=== PATIENT | female | born 1975 | race American Indian/Alaskan Native ===

== ENCOUNTER 2016-03-27 16:27 | Outpatient (CLI) | payer MEDICARE ==
--- NOTE | 2016-03-27 17:58 | Cat Scan Report ---
FINAL REPORT EXAM: CT SINUSES WO CON HISTORY: HYPER NASAL TURBINATES TECHNIQUE: Standard unenhanced CT paranasal sinuses at 1.25 mm increments with coronal and sagittal reconstruction PRIORS: None. FINDINGS: There is deformity of the nasal bones bilaterally suggesting prior fractures. No overlying soft tissue swelling is seen in this region to suggest an acute process. There are prominent nasolacrimal ducts bilaterally which also are partially opacified and contain mucosal thickening. There is mucosal thickening posteriorly in the left maxillary sinus. The frontal, ethmoid, right maxillary, and sphenoid sinuses are clear with no evidence for air-fluid levels or mucosal thickening. Nasal septum is midline. The orbits are intact. The orbital globes are normal. The visualized mastoid air cells are also clear. No overlying soft tissue abnormality is seen. IMPRESSION: 1. Deformity of the nasal bones suggesting prior remote fracture. 2. Mild mucosal thickening in the left maxillary sinus and in the prominent nasolacrimal ducts bilaterally
--- NOTE | 2016-03-27 18:02 | Cat Scan Report ---
FINAL REPORT EXAM: CT FACIAL BONES WO CON HISTORY: HYPER NASAL TURBINATES TECHNIQUE: Standard unenhanced CT facial bones at 2.5 mm increments with coronal and sagittal reconstruction PRIORS: None. FINDINGS: There is fragmentation of the nasal bones bilaterally suggesting prior fracture. No soft tissue swelling over the area is seen to suggest acute process. There is mucosal thickening in the left maxillary sinus posteriorly. The frontal, ethmoid, right maxillary, and sphenoid sinuses are clear with no evidence for air-fluid levels or mucosal thickening. Nasal septum is midline. Prominent nasal acral ducts are present bilaterally containing mucosal thickening and opacification. The orbits are intact. The orbital globes are normal. The visualized mastoid air cells are also clear. No overlying soft tissue abnormality is seen. Incidental plate and screw device is present in the mandible anteriorly. IMPRESSION: Deformity and fragmentation of the nasal bones bilaterally suggesting prior fracture. Mucosal thickening in the left maxillary sinus suggesting mild chronic sinusitis.
== END 2016-03-27 16:28 | disposition home or self-care (01) ==
LOC: CT 16:27
PROVIDERS: ATTEND Otolaryngology
DX: J34.3 Hypertrophy of nasal turbinates (principal)
CPT/HCPCS: 70486

== ENCOUNTER 2019-12-14 16:21 | Emergency (ER) | payer MEDICARE ==
[2019-12-14 17:08] LABS: Basophils % (Auto) 0.5 % (0.0-1.8); Eosinophils % (Auto) 0.3 % (0.0-4.3); Hematocrit 35.2 % (30.3-42.9); Hemoglobin 12.1 gm/dl (10.1-14.3); Lymphocytes # (Auto) 1.4 K/mm3 (1.2-5.4); Lymphocytes % (Auto) 18.1 % (13.4-35.0); Mean Corpuscular HGB Conc 34 % (30-34); Mean Corpuscular Volume 94 fl (79-97); Monocytes # (Auto) 0.4 K/mm3 (0.0-0.8); Monocytes % (Auto) 4.7 % (0.0-7.3); Platelet Count 278 K/mm3 (140-440); Red Blood Count 3.73 M/mm3 (3.65-5.03); Red Cell Distribution Width 14.5 % (13.2-15.2)
[2019-12-14 17:22] LABS: Alanine Aminotransferase 7 units/L (7-56); Albumin 4.1 g/dL (3.9-5); Blood Urea Nitrogen 6 mg/dL (7-17); Calcium 8.8 mg/dL (8.4-10.2); Hemolysis Index 1
[2019-12-14 17:24] LABS: BUN/Creatinine Ratio 9
[2019-12-14 17:32] LABS: Bacteria,Urine 1+ /HPF (Negative); Bilirubin,Urine NEG (Negative); Blood,Urine NEG (Negative); Color,Urine Yellow (Yellow); Mucus,Urine 3+ /HPF; Urobilinogen,Urine < 2.0 mg/dL (<2.0)
[2019-12-14] MEDS ORDERED: SODIUM CHLORIDE 0.9% 500 ML 500 ML IV ONE (20:19)
[2019-12-14] MEDS ORDERED: MORPHINE 4 MG/1 ML INJ IV ONE (20:20)
[2019-12-14] MEDS ORDERED: ONDANSETRON 4 MG/2 ML INJ IV ONE (20:20)
--- NOTE | 2019-12-14 20:23 | Emergency Department Report ---
HPI - General Chief Complaint: Abdominal Pain Time Seen by Provider: 12/14/19 20:03 - HPI HPI: This is a 44-year-old -[place] female presents to the emergency department with a complaint of nausea, vomiting and pelvic pain that has been going on over the past 2 weeks, but is also a chronic issue. Patient has a history of ovarian cysts. She says that she was seen at [facility] about 1 month ago and had an evaluation at that time and it showed that the cyst were "growing." She has a partial hysterectomy secondary to previous uterine cancer and this was done by Dr. Hemal Hernandez. Patient has an appointment in 5 days with [facility] regarding her ovarian cyst and pelvic pain issues. She also has a past medical history of diabetes, GERD, kidney stones, hypothyroidism and bipolar disorder. The patient says that she has been unable to take her home meds secondary to the nausea and vomiting. I looked this patient up on the [facility] prescription monitoring system and she has filled multiple scheduled prescription medications including 80 Percocet 2 days ago. This was written by her PCP, Dr. Vaughn Evans. ED Past Medical Hx - Past Medical History Hx Congestive Heart Failure: No Hx Diabetes: Yes Hx GERD: Yes Hx Renal Disease: Yes (KIDNEY STONES) Hx Kidney Stones: Yes Hx Psychiatric Treatment: Yes (IP, OP and PHP/[place]) Hx Asthma: Yes Hx COPD: No Additional medical history: hyperthyroidism/ OVARIAN CYST - Surgical History Hx Appendectomy: Yes (2012) Additional Surgical History: hysterectomy, Removal of kidney stone - Social History Smoking Status: Light Tobacco Smoker Substance Use Type: None - Medications Home Medications: Home Medications Medication Instructions Recorded Confirmed Last Taken Type Gabapentin 300 mg PO TID 03/31/14 11/04/15 Unknown History Metformin HCl [metFORMIN ER] 500 mg PO QDAY 03/31/14 11/04/15 Unknown History Doxepin [SINEquan] 100 mg PO QHS #30 capsule 04/02/14 11/04/15 Unknown Rx ALPRAZolam [Xanax TAB] 2 mg PO TID PRN 11/04/15 11/04/15 Unknown History Esomeprazole Magnesium [NexIUM] 20 mg PO QDAY 11/04/15 11/04/15 Unknown History Ibuprofen [Motrin 800 MG tab] 800 mg PO Q8HR PRN #30 tablet 11/04/15 Unknown Rx Levocetirizine Dihydrochloride 5 mg PO DAILY 11/04/15 11/04/15 Unknown History [Xyzal] Ondansetron [Zofran ODT TAB] 4 mg PO Q8HR PRN #20 tab.rapdis 11/04/15 Unknown Rx Oxycodone HCl/Acetaminophen 1 each PO TID PRN #15 tablet 11/04/15 Unknown Rx [Percocet 10/325 mg] Propranolol HCl 20 mg PO DAILY 11/04/15 11/04/15 Unknown History QUEtiapine [SEROquel] 300 mg PO QHS 11/04/15 11/04/15 Unknown History Albuterol Sulfate [Proair 90 mcg IH Q4HR PRN #2 aer.pow.ba 12/27/15 Unknown Rx Respiclick] Dicyclomine [Bentyl] 10 mg PO QID PRN #20 capsule 12/27/15 Unknown Rx Ondansetron [Zofran Odt] 4 mg PO QID PRN #20 tab.rapdis 12/27/15 Unknown Rx oxyCODONE [Roxicodone] 5 mg PO Q6HR PRN #15 tablet 12/27/15 Unknown Rx Benzonatate [Tessalon Perles] 100 mg PO Q8HR PRN #30 capsule 02/06/16 Unknown Rx Prednisone [predniSONE 10 mg 10 mg PO .TAPER #1 tab.ds.pk 02/06/16 Unknown Rx (6-Day Pack, 21 Tabs)] Ondansetron [Zofran Odt] 4 mg PO Q8HR PRN #20 tab.rapdis 12/14/19 Unknown Rx ED Review of Systems ROS: Stated complaint: NAUSEA AND ABD PAIN Other details as noted in HPI Comment: All other systems reviewed and negative Constitutional: denies: chills, fever Eyes: denies: eye pain, vision change ENT: denies: ear pain, throat pain Respiratory: denies: cough, shortness of breath Cardiovascular: denies: chest pain, palpitations Gastrointestinal: abdominal pain, nausea, vomiting Genitourinary: other (pelvic pain). denies: dysuria Musculoskeletal: denies: back pain, arthralgia Skin: denies: rash, lesions Neurological: denies: headache, weakness Physical Exam - Physical Exam Vital Signs: Vital Signs 12/14/19 16:40 Temperature 98.3 F Pulse Rate 92 H Respiratory 18 Rate Blood Pressure 138/76 O2 Sat by Pulse 98 Oximetry Physical Exam: GENERAL: The patient is well-developed well-nourished. HENT: Normocephalic. Atraumatic. Patient has moist mucous membranes. EYES: Extraocular motions are intact. NECK: Supple. Trachea is midline. CHEST/LUNGS: Clear to auscultation. There is no respiratory distress noted. HEART/CARDIOVASCULAR: Regular. There is no tachycardia. There is no murmur. ABDOMEN: Abdomen is soft. Unable to reproduce lower abdominal or pelvic discomfort to palpation. No guarding. Patient has normal bowel sounds. NEURO: The patient is awake, alert, and oriented. The patient is cooperative. The patient has no focal neurologic deficits. Normal speech. MUSCULOSKELETAL: There is no tenderness or deformity. There is no limitation range of motion. ED Course Vital Signs 12/14/19 16:40 Temperature 98.3 F Pulse Rate 92 H Respiratory 18 Rate Blood Pressure 138/76 O2 Sat by Pulse 98 Oximetry - Reevaluation(s) Reevaluation #1: 12/15/19 00:45 Lab Results 12/14/19 12/14/19 12/14/19 Range/Units 16:45 16:45 17:15 WBC 7.8 (4.5-11.0) K/mm3 RBC 3.73 (3.65-5.03) M/mm3 Hgb 12.1 (10.1-14.3) gm/dl Hct 35.2 (30.3-42.9) % MCV 94 (79-97) fl MCH 33 H (28-32) pg MCHC 34 (30-34) % RDW 14.5 (13.2-15.2) % Plt Count 278 (140-440) K/mm3 Lymph % (Auto) 18.1 (13.4-35.0) % Frio % (Auto) 4.7 (0.0-7.3) % Eos % (Auto) 0.3 (0.0-4.3) % Baso % (Auto) 0.5 (0.0-1.8) % Lymph # (Auto) 1.4 (1.2-5.4) K/mm3 Frio # (Auto) 0.4 (0.0-0.8) K/mm3 Eos # (Auto) 0.0 (0.0-0.4) K/mm3 Baso # (Auto) 0.0 (0.0-0.1) K/mm3 Seg Neutrophils % 76.4 H (40.0-70.0) % Seg Neutrophils # 6.0 (1.8-7.7) K/mm3 Sodium 137 (137-145) mmol/L Potassium 3.8 (3.6-5.0) mmol/L Chloride 100.2 (98-107) mmol/L Carbon Dioxide 24 (22-30) mmol/L Anion Gap 17 mmol/L BUN 6 L (7-17) mg/dL Creatinine 0.7 (0.6-1.2) mg/dL Estimated GFR > 60 ml/min BUN/Creatinine Ratio 9 % Glucose 123 H (65-100) mg/dL Calcium 8.8 (8.4-10.2) mg/dL Total Bilirubin 0.20 (0.1-1.2) mg/dL AST 12 (5-40) units/L ALT 7 (7-56) units/L Alkaline Phosphatase 85 (35-129) units/L Total Protein 7.6 (6.3-8.2) g/dL Albumin 4.1 (3.9-5) g/dL Albumin/Globulin Ratio 1.2 % Urine Color Yellow (Yellow) Urine Turbidity Clear (Clear) Urine pH 7.0 (5.0-7.0) Ur Specific [place] 1.030 (1.003-1.030) Urine Protein 30 mg/dl (Negative) mg/dL Urine Glucose (UA) Neg (Negative) mg/dL Urine Ketones Neg (Negative) mg/dL Urine Blood Neg (Negative) Urine Nitrite Neg (Negative) Urine Bilirubin Neg (Negative) Urine Urobilinogen < 2.0 (<2.0) mg/dL Ur Leukocyte Esterase Neg (Negative) Urine WBC (Auto) 1.0 (0.0-6.0) /HPF Urine RBC (Auto) 3.0 (0.0-6.0) /HPF U Epithel Cells (Auto) 6.0 (0-13.0) /HPF Urine Bacteria (Auto) 1+ (Negative) /HPF Urine Mucus 3+ /HPF Vital Signs 12/14/19 12/14/19 16:40 23:47 Temperature 98.3 F 98.1 F Pulse Rate 92 H 94 H Respiratory 18 16 Rate Blood Pressure 138/76 Blood Pressure 132/87 [Right] O2 Sat by Pulse 98 99 Oximetry ED Medical Decision Making - Lab Data Result diagrams: 12/14/19 16:45 12/14/19 16:45 - Radiology Data Radiology results: report reviewed, image reviewed interpreted by me: Abdominal x-ray shows nonspecific nonobstructive bowel gas Pelvic pain, Hx of Ovarian cyst TECHNICAL DATA: Ultrasound, pelvic (nonobstetric), real-time with image documentation; transabdominal and transvaginal imaging with Doppler was performed. FINDINGS: The uterus has been removed. The right and left ovaries are of symmetric size and echogenicity. There is a 1.96 cm complex cyst. Doppler imaging demonstrates normal vascular flow to both ovaries. There is no significant quantity of free fluid dependently within the pelvis. IMPRESSION: Left ovarian complex cyst. Recommend clinical correlation - Medical Decision Making This patient presents to the emergency department with complaint of some lower abdominal and pelvic pain that the patient says is related to a growing ovarian cyst. On examination I am unable to reproduce her discomfort to palpation, but there is no guarding. The abdomen is soft, nondistended and nontoxic in appearance. Abdominal x-ray shows nonspecific nonobstructive bowel gas. Pelvic ultrasound shows a 2 cm left ovarian cyst that may be complex. No significant pelvic fluid. Patient's labs have been mostly unremarkable including CBC, metabolic panel and urinalysis. There is no leukocytosis. There are no electrolyte abnormalities. The patient does not have a urinary tract infection and there are no signs of dehydration. The patient was given IV fluid resuscitation, IV analgesia and IV antiemetics. She has good outpatient follow-up with primary care, [facility], and [facility]. Her vital signs have been reassuring throughout her ED course including being afebrile. The patient has recently filled a moderate to large amount of Percocet and therefore should have appropriate pain management at home. I have given her a prescription for Zofran ODT. The patient has been in the emergency department for close to 7 hours in total without any further vomiting and she has been able to pass an oral challenge. She has been instructed to return to the emergency department with any worsening of her symptoms or with any acute distress. Critical Care Time: No Critical care attestation.: If time is entered above; I have spent that time in minutes in the direct care of this critically ill patient, excluding procedure time. ED Disposition Clinical Impression: Nausea, Pelvic pain Ovarian cyst Qualifiers: Laterality: left Qualified Code(s): N83.202 - Unspecified ovarian cyst, left side Disposition: - TO HOME OR SELFCARE Is pt being admited?: No Condition: Stable Instructions: Ovarian Cyst (ED), Acute Nausea and Vomiting (ED), Abdominal Pain (ED) Additional Instructions: Please follow-up with your primary care physician and [facility] in the next few day s. Take your medications as prescribed. Increase your oral rehydration. Return to the emergency department with any worsening of your symptoms, new or concerning symptoms not addressed during this current emergency department visit, or with any acute distress. Prescriptions: Ondansetron [Zofran Odt] 4 mg PO Q8HR PRN #20 tab.rapdis PRN Reason: Nausea Referrals: PRIMARY CAREMD [Primary Care Provider] - 3-5 Days TERRI RUANO MD [Staff Physician] - 3-5 Days [facility] [Provider Group] - 3-5 Days Time of Disposition: 22:58
[2019-12-14] MEDS ORDERED: HYDROmorphone 1 MG/1 ML INJ IV ONE (20:54)
--- NOTE | 2019-12-14 21:15 | XRay Report ---
ABDOMEN 4 VIEWS INDICATION / CLINICAL INFORMATION: Abd pain. COMPARISON: None available. FINDINGS: BOWEL: No dilated bowel. FREE AIR / EXTRALUMINAL GAS: None seen. CALCIFICATIONS: No significant abnormal calcifications. ADDITIONAL FINDINGS: None. LUNGS: Visualized lungs show no significant abnormality. SKELETAL STRUCTURES: No significant abnormality. IMPRESSION: 1. No significant abnormality. Signer Name: Robin Harry MD Signed: 12/14/2019 9:10 PM Workstation Name: [id number]
--- NOTE | 2019-12-14 22:03 | Ultrasound Report ---
CLINICAL DATA: Pelvic pain, Hx of Ovarian cyst TECHNICAL DATA: Ultrasound, pelvic (nonobstetric), real-time with image documentation; transabdominal and transvagina l imaging with Doppler was performed. FINDINGS: The uterus has been removed. The right and left ovaries are of symmetric size and echogenicity. There is a 1.96 cm complex cyst. D oppler imaging demonstrates normal vascular flow to both ovaries. There is no significant quantity of free fluid dependently within the pelvis. IMPRESSION: Left ovarian complex cyst. Recommend clinical correlation GUIDELINES FOR IMAGING OF OVARIAN--ADNEXAL CYST: WOMEN OF REPRODUCTIVE AGE: 1. Cysts <=3 cm: Normal physiologic findings; at the discretion of the interpreting physician whether or not to describe them in the imaging report; do not need follow-up. 2. Cysts >3 and <=5 cm: Should be described in the imaging report with a statement that they are almo st certainly benign; do not need follow-up. 3. Cysts >5 and <=7 cm: Should be described in the imaging report with a statement that they are almo st certainly benign; yearly follow-up with US recommended. 4. Cysts >7 cm: Since these may be difficult to assess completely with US, further imaging with magne tic resonance (MR) or surgical evaluation should be considered. POSTMENOPAUSAL WOMEN: 1. Cysts <=1 cm: Are clinically inconsequential; at the discretion of the interpreting physician whet her or not to describe them in the imaging report; do not need follow-up. 2. Cysts >1 and <=7 cm: Should be described in the imaging report with statement that they are almost certainly benign; yearly follow-up, at least initially, with US recommended. Some practices may opt to increase the lower size threshold for follow-up from 1 cm to as high as 3 cm. One may opt to jayson nue follow-up annually or to decrease the frequency of follow-up once stability or decrease in size h as been confirmed. Cysts in the larger end of this range should still generally be followed on a regu lar basis. 3. Cysts >7 cm: Since these may be difficult to assess completely with US, further imaging with MR or surgical evaluation should be considered. Signer Name: Robin Harry MD Signed: 12/14/2019 9:59 PM Workstation Name: [id number]
[2019-12-14] MEDS ORDERED: METOCLOPRAMIDE 10 MG/2 ML INJ IV ONE (23:42)
[2019-12-15 00:34] VITALS: BP 132/87
== END 2019-12-14 23:53 | disposition home or self-care (01) ==
LOC: ED 16:21
DX: N83.209 Unspecified ovarian cyst, unspecified side (principal); R11.2 Nausea with vomiting, unspecified; R10.2 Pelvic and perineal pain; E11.9 Type 2 diabetes mellitus without complications; K21.9 Gastro-esophageal reflux disease without esophagitis; J45.909 Unspecified asthma, uncomplicated; F17.200 Nicotine dependence, unspecified, uncomplicated; Z87.442 Personal history of urinary calculi; Z90.49 Acquired absence of other specified parts of digestive tract; Z98.890 Other specified postprocedural states; Z90.710 Acquired absence of both cervix and uterus; Z79.84 Long term (current) use of oral hypoglycemic drugs; Z79.899 Other long term (current) drug therapy; Z88.0 Allergy status to penicillin; Z88.8 Allergy status to other drugs, medicaments and biological substances
CPT/HCPCS: 36415; 74019; 80053; 81001; 85025; 93975; 96374; 96375; 99285; J1170; J2405; J2765; J7040